=== PATIENT | male | born 1960 | race African-American/Black ===

== ENCOUNTER 2017-08-15 14:36 | Inpatient (IN) | payer BC ==
[~2017-08-15] VITALS: Ht 198.1 cm; Wt 109.1 kg
[2017-08-15 14:48] VITALS: BP_SYST 152
[2017-08-15] MEDS ORDERED: DIPHENHYDRAMINE INJ 50 MG/ML VIAL IVP ONE (18:45)
[2017-08-15] MEDS ORDERED: MORPHINE 4 MG/ML INJ. SYRINGE IVP ONE (18:45)
[2017-08-15] MEDS ORDERED: ONDANSETRON HCL 4 MG/2 ML VIAL IVP PRN (19:00)
[2017-08-15 19:09] LABS: HEMOGLOBIN 14.7 g/dL (14.0-18.0); MONOCYTES # (AUTO) 0.4 K/uL (0.0-1.0)
[2017-08-15 19:13] LABS: BILIRUBIN,URINE NEGATIVE (NEGATIVE); BLOOD, URINE NEGATIVE (NEGATIVE); CLARITY/URINE CLEAR (CLEAR); COLOR,URINE YELLOW (YELLOW); GLUCOSE,URINE NEGATIVE (NEGATIVE); KETONES,URINE NEGATIVE (NEGATIVE); LEUKOCYTE ESTERASE ,URINE NEGATIVE (NEGATIVE); NITRITE, URINE NEGATIVE (NEGATIVE); PH,URINE 5.5 (5.0-8.0); PROTEIN URINE TRACE (NEGATIVE); UROBILINOGEN,URINE 0.2 (0.2-1.0)
[2017-08-15 19:17] LABS: WHITE BLOOD COUNT (AUTO) 10.4 K/uL (4.8-10.8)
[2017-08-15 19:20] LABS: ANION GAP 9 (5-15); CALCIUM 9.4 mg/dL (8.4-11.0); CHLORIDE 104 mmol/L (98-107); CREATININE 1.56 mg/dL (0.55-1.30); GLUCOSE 117 mg/dL (70-99); POTASSIUM 3.4 mmol/L (3.5-5.1); PROTHROMBIN TIME 10.5 SECS (9.5-12.5); SODIUM SERUM 138 mmol/L (136-145); UREA NITROGEN, BLOOD 21 mg/dL (8-21)
[2017-08-15 19:21] LABS: GFR AFRICAN AMERICAN 60 mL/min (>90)
[2017-08-15 19:23] LABS: BASOPHILS # (AUTO) 0.2 K/uL (0.0-0.2); BASOPHILS % (AUTO) 1.8 % (0.0-2.0); HEMATOCRIT 45.1 % (36-54); LYMPHOCYTES # (AUTO) 0.5 K/uL (1.0-5.5); LYMPHOCYTES % (AUTO) 5.1 % (20.5-51.5); MEAN CORPUSCULAR HEMOGLOBIN 28 pg (27-31); MEAN CORPUSCULAR HGB CONC 33 % (32-36); MEAN CORPUSCULAR VOLUME 85 fL (79.0-98.0); MONOCYTES % (AUTO) 3.9 % (1.7-9.3); NEUTROPHILS # (AUTO) 9.3 K/uL (1.8-7.7); NEUTROPHILS % (AUTO) 89.2 % (40.0-70.0); PLATELET COUNT (AUTO) 238 K/uL (130-430); RED CELL DISTRIBUTION WIDTH 12.7 % (9.0-15.0)
[2017-08-15 19:26] LABS: BARBITURATE, URINE NEGATIVE (NEG <=200); BENZODIAZEPINE, URINE NEGATIVE (NEG <=150); CANNABINOID, URINE NEGATIVE (NEG <=50); COCAINE, URINE NEGATIVE (NEG <=150); METHAMPHETAMINES SCREEN,URINE NEGATIVE (NEG <=500); OPIATE, URINE NEGATIVE (NEG <=100); PHENCYCLIDINE SCREEN,URINE NEGATIVE (NEG <=25); UR TRICYCLIC ANTIDEPRESSANTS NEGATIVE (NEG <=300); URINE AMPHETAMINE NEGATIVE (NEG <=500); URINE METHADONE NEGATIVE (NEG <=200); URINE OXYCODONE SCREEN NEGATIVE (NEG <=100); URINE PROPOXYPHENE SCREEN NEGATIVE (NEG <=300)
[2017-08-15 19:36] LABS: ALANINE AMINOTRANSFERASE 27 U/L (12-78); ALBUMIN 4.1 g/dL (3.4-4.8); ASPARTATE AMINOTRANSFERASE 26 U/L (10-37); FREE T4 (FREE THYROXINE) 0.9 ng/dL (0.6-1.6); TOTAL BILIRUBIN 0.4 mg/dL (0.0-1.0)
[2017-08-15 19:40] LABS: ALCOHOL, BLOOD < 3 mg/dL (<10)
[2017-08-15 20:58] VITALS: BP_SYST 152
[2017-08-15] MEDS ORDERED: ACETAMINOPHEN 325 MG TABLET PO PRN (22:15)
[2017-08-15] MEDS ORDERED: FAMOTIDINE 20 MG TABLET PO ONE (22:15)
[2017-08-15] MEDS ORDERED: NITROGLYCERIN 0.4 MG TAB.SUBL SL PRN (22:15)
[2017-08-15] MEDS ORDERED: ASPIRIN 81 MG TAB.CHEW PO ONE (22:15)
[2017-08-15] MEDS ORDERED: POTASSIUM CHLORIDE 20 MEQ TAB.PRT.SR PO ONE (22:15)
[2017-08-16] VITALS: BP_SYST 152
[2017-08-16] MEDS: NACL 0.9% 1,000 ML IV SCH ×3 (00:09→22:42)
[2017-08-16 04:00] VITALS: BP_SYST 156
[2017-08-16 07:50] LABS: BASOPHILS % (AUTO) 0.2 % (0.0-2.0); EOSINOPHILS % (AUTO) 0.3 % (0.0-4.0); HEMATOCRIT 43.1 % (36-54); HEMOGLOBIN 14.1 g/dL (14.0-18.0); LYMPHOCYTES # (AUTO) 0.9 K/uL (1.0-5.5); LYMPHOCYTES % (AUTO) 12.7 % (20.5-51.5); MEAN CORPUSCULAR HEMOGLOBIN 28 pg (27-31); MEAN CORPUSCULAR HGB CONC 33 % (32-36); MEAN CORPUSCULAR VOLUME 85 fL (79.0-98.0); MONOCYTES # (AUTO) 0.3 K/uL (0.0-1.0); MONOCYTES % (AUTO) 5.1 % (1.7-9.3); NEUTROPHILS # (AUTO) 5.5 K/uL (1.8-7.7); NEUTROPHILS % (AUTO) 81.7 % (40.0-70.0); PLATELET COUNT (AUTO) 214 K/uL (130-430); RED BLOOD CELL COUNT(AUTO) 5.04 MIL/uL (4.2-6.2); RED CELL DISTRIBUTION WIDTH 12.8 % (9.0-15.0); WHITE BLOOD COUNT (AUTO) 6.7 K/uL (4.8-10.8)
[2017-08-16 08:00] LABS: ALBUMIN 3.7 g/dL (3.4-4.8); CALCIUM 9.1 mg/dL (8.4-11.0); CREATININE 1.45 mg/dL (0.55-1.30); POTASSIUM 3.4 mmol/L (3.5-5.1); TOTAL BILIRUBIN 0.5 mg/dL (0.0-1.0)
[2017-08-16 08:10] VITALS: BP_SYST 180
[2017-08-16] MEDS: FAMOTIDINE 20 MG TABLET PO SCH (08:37)
[2017-08-16] MEDS: ASPIRIN 81 MG TAB.CHEW PO SCH (08:37)
[2017-08-16] MEDS: MORPHINE 2 MG/ML INJ. SYRINGE IVP PRN ×2 (08:40→18:57)
[2017-08-16] MEDS ORDERED: ACETAMINOPHEN 500 MG TABLET PO PRN (09:30)
[2017-08-16] MEDS ORDERED: hydrALAZINE HCL 25 MG TABLET PO ONE (10:45)
[2017-08-16] MEDS ORDERED: LOSARTAN POTASSIUM 50 MG TABLET (COZAAR) PO ONE (10:45)
[2017-08-16] MEDS ORDERED: amLODIPine BESYLATE 10 MG TABLET PO ONE (10:45)
[2017-08-16] MEDS ORDERED: POTASSIUM CHLORIDE 20 MEQ TAB.PRT.SR PO ONE (11:30)
[2017-08-16 11:36] VITALS: BP_SYST 165
[2017-08-16] MEDS: hydrALAZINE HCL 25 MG TABLET PO SCH ×2 (13:29→21:30)
[2017-08-16] MEDS ORDERED: HYDROcodone/ACETAMIN 5-325 MG TAB (NORCO/ VICODIN) PO PRN (14:30)
[2017-08-16] MEDS ORDERED: cloNIDine HCL 0.1 MG TABLET PO PRN ×2 (14:30→14:45)
[2017-08-16 16:19] VITALS: BP_SYST 148
[2017-08-16 20:00] VITALS: BP_SYST 128
[2017-08-16] MEDS: LOSARTAN POTASSIUM 50 MG TABLET (COZAAR) PO SCH (21:29)
[2017-08-17] VITALS: BP_SYST 151
[2017-08-17] MEDS: hydrALAZINE HCL 25 MG TABLET PO SCH (05:59)
[2017-08-17 08:00] VITALS: BP_SYST 150
[2017-08-17 08:08] LABS: CALCIUM 8.7 mg/dL (8.4-11.0); CREATININE 1.49 mg/dL (0.55-1.30); POTASSIUM 3.5 mmol/L (3.5-5.1)
[2017-08-17 08:13] LABS: BASOPHILS % (AUTO) 0.3 % (0.0-2.0); EOSINOPHILS % (AUTO) 0.8 % (0.0-4.0); HEMATOCRIT 44.3 % (36-54); HEMOGLOBIN 14.3 g/dL (14.0-18.0); LYMPHOCYTES # (AUTO) 0.8 K/uL (1.0-5.5); LYMPHOCYTES % (AUTO) 16.8 % (20.5-51.5); MEAN CORPUSCULAR HEMOGLOBIN 28 pg (27-31); MEAN CORPUSCULAR HGB CONC 32 % (32-36); MEAN CORPUSCULAR VOLUME 86 fL (79.0-98.0); MONOCYTES # (AUTO) 0.3 K/uL (0.0-1.0); MONOCYTES % (AUTO) 6.9 % (1.7-9.3); NEUTROPHILS # (AUTO) 3.9 K/uL (1.8-7.7); NEUTROPHILS % (AUTO) 75.2 % (40.0-70.0); PLATELET COUNT (AUTO) 216 K/uL (130-430); RED BLOOD CELL COUNT(AUTO) 5.14 MIL/uL (4.2-6.2); RED CELL DISTRIBUTION WIDTH 12.9 % (9.0-15.0)
[2017-08-17] MEDS ORDERED: ASPIRIN 81 MG TAB.CHEW PO SCH (09:00)
[2017-08-17] MEDS ORDERED: amLODIPine BESYLATE 10 MG TABLET PO SCH (09:00)
[2017-08-17 09:12] LABS: ALBUMIN 3.5 g/dL (3.4-4.8); THYROID STIMULATING HORMONE 2.23 uIu/mL (0.36-3.74); TOTAL BILIRUBIN 0.5 mg/dL (0.0-1.0)
[2017-08-17] MEDS: LOSARTAN POTASSIUM 50 MG TABLET (COZAAR) PO SCH (09:42)
[2017-08-17] MEDS: ASPIRIN 81 MG TAB.CHEW PO SCH (09:43)
[2017-08-17] MEDS: FAMOTIDINE 20 MG TABLET PO SCH (09:43)
[2017-08-17] MEDS: NACL 0.9% 1,000 ML IV SCH (11:20)
[2017-08-17 12:06] VITALS: BP_SYST 146
[2017-08-17 12:10] VITALS: BP_SYST 160
[2017-08-17] MEDS ORDERED: NOR10 PO (12:17)
[2017-08-17] MEDS ORDERED: LOSA50TA3 PO (12:19)
[2017-08-17] MEDS ORDERED: HYDR-4039 PO (12:20)
[2017-08-17 13:28] VITALS: BP_SYST 146
== END 2017-08-17 13:48 | disposition home or self-care (01) | DRG 89 ==
LOC: SED 14:36 → STU 19:34
PROVIDERS: ADMIT Internal Medicine; ATTEND Internal Medicine
DX: S06.0X9A Concussion with loss of consciousness of unspecified duration, initial encounter (principal); N17.9 Acute kidney failure, unspecified; S09.8XXA Other specified injuries of head, initial encounter; S00.31XA Abrasion of nose, initial encounter; I12.9 Hypertensive chronic kidney disease with stage 1 through stage 4 chronic kidney disease, or unspecified chronic kidney disease; N18.9 Chronic kidney disease, unspecified; Y08.89XA Assault by other specified means, initial encounter; Y93.89 Activity, other specified; Y92.89 Other specified places as the place of occurrence of the external cause; Y99.8 Other external cause status
CPT/HCPCS: 36415; 70450-TC; 70480; 71010; 72125-TC; 74000-TC; 76770; 80053; 80061; 80307; 81003; 82140-TC; 83605; 83735-TC; 83880; 84439; 84443-TC; 84484; 85025; 85610-TC; 87040-TC; 93005; 93306; 96374; 96375; 99285; G0482; J1200; J2270; J7030